=== PATIENT | male | born 1955 | race Caucasian/White ===

== ENCOUNTER → 2019-10-13 | Day surgery (SDC) | payer MEDICARE, OTHER ==
[2019-10-10 10:09] LABS: BASOPHILS # (AUTO) 0.1 (0.0-0.1); BASOPHILS % 0.7 % (0.0-1.0); EOSINOPHILS # (AUTO) 0.2 (0.0-0.4); EOSINOPHILS % 2.4 % (0.0-6.0); HEMOGLOBIN 13.6 g/dL (14.0-18.0); LYMPHOCYTES # (AUTO) 1.6 (1.0-3.2); LYMPHOCYTES % 18.1 % (18.0-39.1); MEAN CORPUSCULAR HEMOGLOBIN 31.7 pg (28-32); MEAN CORPUSCULAR HGB CONC 33.2 g/dL (31-35); MEAN CORPUSCULAR VOLUME 95.6 fL (81-99); MONOCYTES % 11.1 % (4.4-11.3); NEUTROPHILS # (AUTO) 5.9 (2.1-6.9); NEUTROPHILS % 66.7 % (38.7-80.0); PLATELET COUNT 216 x10e3/uL (140-360); RED BLOOD COUNT 4.29 x10e6/uL (4.3-5.7); RED CELL DISTRIBUTION WIDTH 13.1 % (11.7-14.4)
[2019-10-10 10:34] LABS: ALBUMIN 3.4 g/dL (3.5-5.0); ALBUMIN/GLOBULIN RATIO 1.4 (0.8-2.0); CREATININE, SERUM 1.57 mg/dL (0.72-1.25)
[2019-10-13] VITALS (8 sets, daily range): BP systolic 125–144; BP diastolic 65–79
[~2019-10-13] VITALS: Ht 180.3 cm; Wt 65.8 kg
[~2019-10-13] MED LIST: ALPRAZOLAM 0.5 MG TAB ONE; AMIODARONE HCL200 MG PO; AMLODIPINE BESY10 MG PO; ATORVASTATIN CA20 MG PO; CARVEDILOL25 MG PO; CITALOPRAM HBR20 MG PO; DIPHENHYDRAMINE HCL 25 MG CAP ONE; FENTANYL CITRATE/PF 100MCG/2 ML INJ ONE; FLOMAX0.4 MG PO; FLUTICASONE PRO16 GM; HEPARIN SOD (PORCINE) 1000 UNIT/ML 30ML ONE; HEPARIN SOD/SOD CHLORIDE 2,000 ML ONE; IOPAMIDOL 370 MG/ML 200 ML INFUS..BTL INJ ONE; LIDOCAINE HCL 2% LOCAL 20 ML VIAL ONE; LISINOPRIL10 MG PO; MIDAZOLAM HCL 2 MG/2 ML VIAL ONE; PANTOPRAZOLE SO40 MG PO; POTASSIUM CHLO10 ME1 PO; SODIUM CHLORIDE 0.9% 1000ML 1,000 ML ONE; SYMBICORT 16010.2 GM INH; TRAZODONE HCL50 MG PO; VERAPAMIL HCL 2.5 MG/ML 2 ML VIAL ONE
--- OUTSIDE RECORDS SUMMARY | 2019-10-13 12:04 | XMS REPORT | Clinical Summary ---
Author Author [facility] Address Unknown Phone Unavailable Care Team Providers Care Forestry Consultant Name Role Phone System, Provider Not In MD PCP Unavailable Allergies No Known Allergies Medications End Date Status Medication Sig Dispensed Refills Start Date Active acetaminophen-codeine Take 1 tablet 0 (TYLENOL WITH CODEINE #3) by mouth 300-30 mg per tablet every 6 (six) hours as needed for moderate pain. Active acetaminophen (TYLENOL) Take 1,000 mg 0 500 MG tablet by mouth every 6 (six) hours as needed for mild pain. 12/10/2018 Discontinued (Reorder) amLODIPine (NORVASC) 10 Take 10 mg by 0 mg tablet mouth every morning. 12/10/2018 Discontinued (Stop Taking at Discharge) amLODIPine (NORVASC) 2.5 Take 5 mg by 0 mg tablet mouth nightly. 12/10/2018 Discontinued (Reorder) metoprolol tartrate Take 25 mg by 0 (LOPRESSOR) 25 mg tablet mouth 2 (two) times a day. 12/10/2018 Discontinued (Reorder) tamsulosin (FLOMAX) 0.4 Take 0.4 mg 0 mg capsule by mouth daily. 12/10/2018 Discontinued (Reorder) traZODone (DESYREL) 100 Take 100 mg 0 MG tablet by mouth nightly. 12/10/2018 Discontinued (Reorder) lisinopril Take 20 mg by 0 (PRINIVIL,ZESTRIL) 20 mg mouth daily. tablet 12/10/2018 Discontinued (Stop Taking at Discharge) hydroCHLOROthiazide Take 12.5 mg 0 (MICROZIDE) 12.5 mg by mouth capsule daily. 01/09/2019 metoprolol tartrate Take 1 tablet 60 tablet 0 (LOPRESSOR) 25 mg tablet (25 mg total) 9 by mouth 2 (two) times a day for 30 days. 01/09/2019 lisinopril Take 1 tablet 30 tablet 0 (PRINIVIL,ZESTRIL) 20 mg (20 mg total) 9 tablet by mouth daily for 30 days. 01/09/2019 tamsulosin (FLOMAX) 0.4 Take 1 30 capsule 0 mg capsule capsule (0.4 9 mg total) by mouth daily for 30 days. 01/09/2019 traZODone (DESYREL) 100 Take 1 tablet 30 tablet 0 201 MG tablet (100 mg 9 total) by mouth nightly for 30 days. 01/09/2019 amLODIPine (NORVASC) 10 Take 1 tablet 30 tablet 0 mg tablet (10 mg total) 9 by mouth every morning for 30 days. Active Problems Problem Noted Date Chest pain 12/08/2018 Encounters Care Team Description Date Type Specialty Cristhian Fam MD Rizvi, Farhan, MD Chest pain, unspecified type (Primary Dx ) 12/08/2018 Emergency General Internal Me [facility] - 12/10/2018 12/08/2018 Travel after 10/12/2018 Social History Date Tobacco Use Types Packs/Day Years Used Current Every Day Smoker Cigarettes Smokeless Tobacco: Never Used Comments: 1 cigarette a day Drinks/Week oz/Week Comments Alcohol Use Never Alcohol Habits Answer Date Recorded How often do you have a drink containing alcohol? Never 12/08/2018 How many drinks containing alcohol do you have on No t asked a typical day when you are drinking? How often do you have six or more drinks on one Not asked occasion? Sex Assigned at Date Recorded Not on file Industry Job Start Date Occupation Not on file Not on file Not on file Travel End Travel History Travel Start No recent travel history available. Last Filed Vital Signs Reading Time Taken Comments Vital Sign 112/65 12/10/2018 11:14 AM CDT Blood Pressure 67 12/10/2018 11:14 AM CDT Pulse 36.8 C (98.2 F) 12/10/2018 11:14 AM CDT Temperature 16 12/10/2018 11:14 AM CDT Respiratory Rate 95% 12/10/2018 11:14 AM CDT Oxygen Saturation - - Inhaled Oxygen Concentration 68 kg (150 lb) 12/08/2018 10:38 AM CDT Weight 180.3 cm (5' 11") 12/08/2018 10:38 AM CDT Height 20.92 12/08/2018 10:38 AM CDT Body Mass Index Plan of Treatment Health Maintenance Due Date Last Done Comments COLONOSCOPY SCREENING 01/30/2004 SHINGLES VACCINES (#1) 01/30/2004 65+ PNEUMOCOCCAL VACCINE 2019 (1 of 2 - PCV13) INFLUENZA VACCINE 01/06/2020 Procedures Comments Procedure Name Priority Date/Time Associated Diag nosis NM MYOCARDIAL PERFUSION Routine 12/10/2018 REST STRESS 2 DAY 12:37 PM CDT CV STRESS TEST NUCLEAR Routine 12/10/2018 CARDIO 12:37 PM CDT TTE COMPLETE, WO Routine 12/09/2018 CONTRAST, W DOPPLER 10:58 AM CDT (76033) ESTIMATED GFR Routine 12/09/2018 6:32 AM CDT BASIC METABOLIC PANEL Routine 12/09/2018 6:32 AM CDT HC COMPLETE BLD COUNT Routine 12/09/2018 W/AUTO DIFF 6:32 AM CDT TROPONIN Timed 12/08/2018 8:49 PM CDT TROPONIN Timed 12/08/2018 2:03 PM CDT XR CHEST 1 VW PORTABLE STAT 12/08/2018 11:01 AM CDT ECG ED PRELIMINARY Routine 12/08/2018 INTERPRETATION 10:30 AM CDT LIPID PANEL Routine 12/08/2018 10:30 AM CDT HEMOGLOBIN A1C Routine 12/08/2018 10:30 AM CDT ESTIMATED GFR STAT 12/08/2018 10:30 AM CDT B NATRIURETIC PEPTIDE STAT 12/08/2018 10:30 AM CDT TROPONIN STAT 12/08/2018 10:30 AM CDT COMPREHENSIVE METABOLIC STAT 12/08/2018 PANEL 10:30 AM CDT HC COMPLETE BLD COUNT STAT 12/08/2018 W/AUTO DIFF 10:30 AM CDT ECG 12-LEAD STAT 12/08/2018 10:15 AM CDT after 10/12/2018 Results * Cv stress test (12/10/2018 12:37 PM CDT) Resting HR 62 [facility] Resting BP 146 [facility] Peak MET 1.0 [facility] Achieved Protocol Name LEXISCAN [facility] Time in 00:00:55 [facility] Exercise Phase Max Systolic BP 146 [facility] Max Diastolic 80 [facility] BP Max Heart Rate 76 [facility] Max Predicted 156 [facility] Heart Rate Target HR (220 - Age)*100% [facility] Formula Test Indication [facility] Arrhy During Ex none [facility] ECG Interp LAD, LEFT ATRIAL ENLARGEMENT [facility] Before EX ECG Interp none [facility] During Ex Ex Summary Myoview to follow [facility] Comment Chest Pain none [facility] Statement Overall HR appropriate [facility] Response to Exercise Overall BP normal resting BP - [facility] Response To appropriate response Exercise Reason for Protocol completed [facility] Termination Stress Test MYOVIEW TO [facility] Impression FOLLOW--Electronically Sign ed By Juan Francisco Paz MD ([id number]) on 12/29/2018 8:55:50 PM Specimen Narrative Performed At This result has an attachment that is n ot available. Performing Organization Address City/State/Zipcode Ph one Number [facility] [address] [place] [address] * Nm myocardial perfusion (12/10/2018 12:37 PM CDT) Target HR 156.00 bpm [facility] Resting HR 62 BPM [facility] Resting BP 146/80 mmHg [facility] O2 sat rest 96 % [facility] Post Peak HR 76 bpm [facility] Percent HR 48.72 % [facility] Post Peak BP 146/80 mmHg [facility] O2 sat peak 99 % [facility] Specimen Narrative Performed At [facility] Normal hemodynamic lexiscan stress test . Normal ECG lexiscan stress test. Abormal myocardial perfusion imaging de monstrating a large, severe, predominantly fixed inferior and apical defect consistent with prior infarct. Gated imaging demonstrates an EF of 35% with akinesis of the basal to apical inferior wall and apex. Performing Organization Address City/State/Zipcode Ph one Number [facility] [address] [place] [address], [place] * Echocardiogram complete w contrast and 3D if needed (12/09/2018 10:58 AM CDT) Ao Root 4.17 cm [facility] Diameter AoV Area, Vmax 3.75 cm2 [facility] AoV Area, VTI 4.11 cm2 [facility] AoV Mean PG 2.82 mmHg [facility] AoV Peak PG 4.66 mmHg [facility] AoV Vmax 1.10 m/s [facility] AoV VTI 0.19 m [facility] BSA Vázquez 1.84 m2 [facility] BSA 1.87 m2 [facility] IVS,d 0.86 cm [facility] IVS/LVPW,2D 0.83 [facility] Left Atrium 4.04 cm [facility] Dimension Anterior LV,d 5.21 cm [facility] LV EF,2D 55.66 % [facility] LV,s 3.97 cm [facility] LVOT area 4.26 cm2 [facility] LVOT Diam,S 2.33 cm [facility] LVOT Vmax 1.00 m/s [facility] LVOT VTI 0.20 m [facility] LVPWD,d 1.04 cm [facility] PV Pk Grad 3.66 mmHg [facility] PV VMAX 0.96 m/s [facility] RVSP (TR) 35.40 mmHg [facility] TR Vpeak 3.01 mm/s [facility] TR pk grad 32.58 mmHg [facility] AoV area i VTI 2.20 cm2/m2 [facility] BSA Behzad BMI 20.92 kg/m2 [facility] IVRT 111.32 msec [facility] AV LVOT peak 3.64 mmHg [facility] gradient Ascending aorta 3.97 cm [facility] RVSP 35.40 mmHg [facility] Ao Root 4.17 cm [facility] Diameter LV SYS VOL 68.84 ml [facility] LV KHOURY VOL 130.03 ml [facility] LA area s A4C 16.59 cm2 [facility] LV SI Teich 2D 32.79 ml/m2 [facility] LV SV Teich 2D 61.19 ml [facility] LV Vol s Teich 68.84 ml [facility] PSAX LVOT SI 40.55 ml/m2 [facility] BSA Haycock 1.84 m2 [facility] AoV Vmn 0.78 [facility] IVS s 2D 1.56 [facility] LV FS Teich 2D 23.75 [facility] LV FS Cube 2D 23.75 [facility] LVOT Vmn 0.61 [facility] Pt Size 180.34 [facility] Pt Wt 68.04 [facility] Aov area Vmn 3.34 cm2 [facility] LA A_P score P 2.40 [facility] LVOT mean grad 1.83 mmHg [facility] MAX Pred HR 155.14 [facility] 85 of MPHR 131.87 [facility] AoV area I VMN 1.79 cm2/m2 [facility] bsa Calc MPHR 155.14 bpm [facility] IVS pct thck 81.91 % [facility] PLAX LV SI Cube 2D 42.16 ml/m2 [facility] LV SV Cube 2D 78.67 ml [facility] LV vol d cube 141.34 ml [facility] 2D LV vol s cube 62.67 ml [facility] 2D LVPW pct thck 64.94 % [facility] PLAX LVPW s PLAX 1.71 cm [facility] Pred Exer Dur 7.96 [facility] R1 Pred METS R1 8.27 [facility] LA Vol MOD A4C 35.83 ml [facility] Velocity Ratio 0.91 m/s [facility] (V1/V2) EF 47.06 % [facility] Specimen Narrative Performed At [facility] Left ventricular systolic function i s mildly impaired. Left Ventricular ejection fraction i s 40 - 45%. Right ventricular size is mildly enl arged. Moderate tricuspid valve regurgitati on. Spectral Doppler shows pseudonormal pattern of left ventricular diastolic filling. Elevated LV filling pressure. Performing Organization Address City/State/[facility] Ph one Number [facility] [address] [place] [address], * Estimated GFR (12/09/2018 6:32 AM CDT) Only the most recent of 2 results within the time period is included. Estimated GFR 57 (A) mL/min/1.73 m2 [facility] Comment: [facility] G1 >=90 Normal or high G2 60-89 Mildly decreased G3a 45-59 Mildly to moderately decreased G3b 30-44 Moderately to severely decreased G4 15-29 Severely decreased G5 <15 Kidney failure The eGFR was calculated using the Chronic Kidney Disease Epidemiology Collaboration (CKD-EPI) equation. Interpretation is based on recommendations of the National Kidney Foundation-Kidney Disease Outcomes Quality Initiative (NKF-KDOQI) published in 2014. Specimen Plasma specimen Performing Organization Address City/State/Zipcode Ph one Number [facility] [address] [place] [address] PATHOLOGY AND GENOMIC MEDICINE [address] * CBC with platelet and differential (12/09/2018 6:32 AM CDT) Only the most recent of 2 results within the time period is included. Pathologist [facility] WBC 10.0 4.2 - 11.0 k/uL [facility] RBC 4.87 4.04 - 5.86 m/uL [facility] HGB 14.5 13.0 - 17.3 g/dL [facility] HCT 44.8 34.0 - 45.0 % [facility] MCV 92.0 80.0 - 98.0 fL [facility] MCH 29.8 27.0 - 34.0 pg [facility] MCHC 32.4 31.5 - 36.5 g/dL [facility] RDW - SD 43.1 37.0 - 51.0 fL [facility] MPV 10.1 7.4 - 10.4 fL [facility] Platelet count 218 150 - 400 k/uL [facility] Nucleated RBC 0.00 /100 WBC [facility] Neutrophils 75.8 (H) 36.0 - 66.0 % [facility] Lymphocytes 14.3 (L) 24.0 - 44.0 % [facility] Monocytes 8.1 (H) 0.0 - 6.0 % [facility] Eosinophils 0.9 0.0 - 6.0 % [facility] Basophils 0.3 0.0 - 1.2 % [facility] Immature 0.6 0.0 - 1.0 % [facility] granulocytes [facility] Specimen Blood Performing Organization Address City/[facility] Ph one Number [facility] [place] [address] PATHOLOGY AND GENOMIC MEDICINE [address] * Basic metabolic panel (12/09/2018 6:32 AM CDT) [facility] Sodium 142 135 - 150 mEq/L [facility] Potassium 3.9 3.5 - 5.0 mEq/L [facility] Chloride 105 98 - 112 mEq/L [facility] CO2 24 24 - 31 mmol/L [facility] Anion gap 13@ANIO 7 - 15 mEq/L [facility] BUN 16 7 - 18 mg/dL [facility] Creatinine 1.30 (H) 0.70 - 1.20 mg/dL [facility] Glucose 111 (H) 65 - 100 mg/dL [facility] Calcium 9.7 8.8 - 10.2 mg/dL [facility] Specimen Plasma specimen Performing Organization Address [facility] Ph one Number [facility] [place] [address] PATHOLOGY AND GENOMIC MEDICINE [address] * Troponin (12/08/2018 8:49 PM CDT) Only the most recent of 3 results within the time period is included. [facility] Troponin 0.035 0.000 - 0.040 ng/mL [facility] Comment: [facility] changed methodology effective: HOSPITAL 10/11/2018 at 10:00 am The new method has a 99th percentile cutoff of 0.040 ng/mL Specimen Plasma specimen Performing Organization Address City/[facility] Ph one Number [facility] DEPARTMENT OF [address] [place] [address] PATHOLOGY AND GENOMIC MEDICINE [facility] [address] [place], [place] [id number] [place] [address] * XR Chest 1 Vw Portable (12/08/2018 11:01 AM CDT) Specimen Narrative Performed At EXAMINATION: XR CHEST 1 VW PORTABLE [facility] INDICATION: chest pain COMPARISON: 05/17/2015 IMPRESSION: Mildly hyperinflated lungs with coarsen ed bronchovascular markings, suggestive of emphysema. Linear opacities in the l lissette bases, compatible with scarring and hypoventilatory changes. There is a lef t midlung calcified granuloma. No acute airspace disease or pulmonary edema. No pleural effusion or pneumothorax. Unchanged enlarged cardiomediastinal si lhouette. Unchanged osseous structures. [facility]-[id number] Procedure Note Hm Interface, Radiology Results Incoming - 12/08/2018 11:06 AM CDT EXAMINATION: XR CHEST 1 VW PORTABLE INDICATION: chest pain COMPARISON: 05/17/2015 IMPRESSION: Mildly hyperinflated lungs with coarsened bronchovascular markings, suggestive of emphysema. Linear opacities in the lung bases, compatible with scarring and hypoventilatory changes. There is a left midlung calcified granuloma. No acute airspace disease or pulmonary edema. No pleural effusion or pneumothorax. Unchanged enlarged cardiomediastinal silhouette. Unchanged osseous structures. [facility]-[id number] Performing Organization Address [facility] Ph one Number [facility] [address] [place] [address] * ECG ED Preliminary Interpretation - Not an Order (12/08/2018 10:30 AM CDT) Narrative Performed At Cristhian Fam MD 12/09/19 11:11 PM ECG ED Preliminary Interpretation - Not an Order Performed by: Cristhian Fam M D Authorized by: Cristhian Fam MD ECG reviewed by ED Physician in the abs ence of a junior net developer: yes Interpretation: Interpretation: abnormal Rate: ECG rate: 81 ECG rate assessment: normal Rhythm: Rhythm: sinus rhythm Ectopy: Ectopy: none QRS: QRS axis: Normal QRS intervals: Wide Conduction: Conduction: normal ST segments: ST segments: Non-specific T waves: T waves: normal Q waves: Q waves: V3, V4, II, III and aVF Other findings: Other findings: [facility] * B natriuretic peptide (12/08/2018 10:30 AM CDT) Pathologist [facility] BNP 86 0 - 100 pg/mL [facility] Specimen Blood Performing Organization Address City/State/Zipcode Ph one Number [facility] OF [address] [place] [address] PATHOLOGY AND GENOMIC MEDICINE [facility] [address] * Hemoglobin A1c (12/08/2018 10:30 AM CDT) Pathologist [facility] Hemoglobin A1C 5.8 (H) 4.0 - 5.6 % [facility] Comment: [facility] HbA1c cutoffs for diagnosing [place] diabetes: HOSPITAL 4.0% - 5.6% = normal 5.7% - 6.4% = increased risk for diabetes (prediabetes) >=6.5% = diabetes Goals for glycemic control (ADA 2016) < 7.0% Target for non adults with diabetes. More or less stringent targets may be appropriate for individual patients. <7.5% Target for Children and adolescents with type 1 diabetes. Specimen Blood Performing Organization Address City/State/Zipcode Ph one Number [facility] OF [address] [facility] [place] [address] PATHOLOGY AND GENOMIC MEDICINE [facility] [address] [place] [address] * Lipid panel (12/08/2018 10:30 AM CDT) Cholesterol 238 (H) 0 - 199 mg/dL [facility] Triglycerides 148 0 - 149 mg/dL [facility] HDL cholesterol 67 40 - 9,999 mg/dL [facility] LDL cholesterol 191 (H)Comment: Result 0 - 99 mg/dL [facility] obtained by direct LDL [facility] measurement [facility] Lipid panel See below [facility] interpretation Comment: [facility] Total Cholesterol (mg/dL) [place] LDL Cholesterol HOSPITAL (mg/dL) <200 Desirable <100 Optimal 200-239 Borderline-high 100-129 Near or above optimal >=240 High 130-159 Borderline-high 160-189 High >=190 Very high HDL Cholesterol (mg/dL) Triglycerides (mg/dL) <40 Low <150 Normal >=60 High 150-199 Borderline-high 200-499 High >=500 Very high Risk Catergories that modify LDL goals. Risk Catergories LDL goal (mg/dL) CHD and CHD risk equivalent <100 (10-year risk >20%) Multiple (2+) risk factors <130 (10-year risk =<20%) 0-1 risk factors <160 (<10-year risk) Defining levels of lipids in metabolic syndrome Triglycerides >=150 mg/dL HDL Cholesterol Men <40 mg/dL Women <50 mg/dL Non-HDL cholesterol is a second target for therapy in persons with high triglycerides (>=200 mg/dL) Specimen Plasma specimen Performing Organization Address City/State/[facility] Ph one Number [facility] [address] [place] [address] PATHOLOGY AND GENOMIC MEDICINE [facility] [address] * Comprehensive metabolic panel (12/08/2018 10:30 AM CDT) Sodium 144 135 - 150 mEq/L [facility] Potassium 3.2 (L) 3.5 - 5.0 mEq/L [facility] Chloride 102 98 - 112 mEq/L [facility] CO2 26 24 - 31 mmol/L [facility] Anion gap 16@ANIO (H) 7 - 15 mEq/L [facility] BUN 15 7 - 18 mg/dL [facility] Creatinine 1.30 (H) 0.70 - 1.20 mg/dL [facility] Glucose 107 (H) 65 - 100 mg/dL [facility] Calcium 9.9 8.8 - 10.2 mg/dL [facility] Protein 7.3 6.3 - 8.3 g/dL [facility] Albumin 4.2 3.5 - 5.0 g/dL [facility] A/G ratio 1.4 0.7 - 3.8 [facility] Alkaline 121 0 - 129 U/L [facility] phosphatase [facility] AST 32 10 - 50 U/L [facility] ALT 35 5 - 50 U/L [facility] Total bilirubin 0.4 0.2 - 1.2 mg/dL [facility] Specimen Plasma specimen Performing Organization Address City/State/Zipcode Ph one Number [facility] OF [address] [facility] [place] [address] PATHOLOGY AND GENOMIC MEDICINE [facility] [address] [facility] [place] [address] HOSPITAL * ECG 12 lead (12/08/2018 10:15 AM CDT) Ventricular 81 [facility] rate Atrial rate 81 [facility] MN interval 190 [facility] QRSD interval 124 [facility] QT interval 458 [facility] QTC interval 532 [facility] P axis 1 34 [facility] QRS axis 1 -78 [facility] T wave axis 46 [facility] MUSE EKG impression Normal sinus rhythm-Possible [facility] MUSE Left atrial enlargement-Left axis deviation-Left ventricular hypertrophy with QRS widening ( Lc product )-Inferior infarct (cited on or before 14-DEC-2008)-Anterior infarct (cited on or before 14-DEC-2008)-Abnormal ECG-In automated comparison with ECG of 04-JUN-2015 11:46,-Nonspecific T wave abnormality has replaced inverted T waves in Inferior leads- Specimen Narrative Performed At This result has an attachment that is n ot available. Performing Organization Address City/State/[facility] Ph one Number [facility] MUSE [address] [place] [address] after 10/12/2018 Insurance Type Payer Benefit Subscriber ID Effective Phone Address Plan / Dates Group O [facility] MEDICARE [facility] DUAL xxxxxxxxx 2018-P COMPLETE resent [facility] Liability Advance Directives For more information, please contact: [phone] Patient Police Justice Explanation Type Date Recorded Advance Directives, 10/08/2015 11:45 AM Living Will and Medical Power of [employer] Advance Directives, 10/16/2015 12:53 PM Living Will and Medical Power of [employer] Advance Directives, 10/22/2015 10:22 AM Living Will and Medical Power of [employer] Advance Directives, 12/16/2015 8:58 AM Living Will and Medical Power of [employer] Advance Directives, 12/08/2018 10:54 AM Living Will and Medical Power of [employer]
--- OUTSIDE RECORDS SUMMARY | 2019-10-13 12:05 | XMS REPORT ---
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 Allergies, Adverse Reactions, Alerts Allergy Name Allergy Type Status Severity Reaction(s) Onset Date Inacti ve Date Treating Clinician Comments No Known Allergies DA Active U 2019-06-23 00:00:00 No Known Allergies DA Active U 2019-05-08 00:00:00 No Known Allergies DA Active U 2014-12-21 00:00:00 Medications This patient has no known medications. Results Test Description Test Time Test Comments Text Results Atomic Results Result Comments BASIC METABOLIC PANEL 2019-06-23 18:40:00 SODIUM (test code = NA) 143 mmol/L 136-145 POTASSIUM (test code = K) 4.4 mmol/L 3.5-5.1 CHLORIDE (test code = CL) 112.0 mmol/L 98-107 CARBON DIOXIDE (test code = CO2) 24.0 mmol/L 21-32 ANION GAP (test code = GAP) 11.4 10-20 GLUCOSE (test code = GLU) 94 mg/dL 74-106 BLOOD UREA NITROGEN (test code = BUN) 9 mg/dL 7-18 GLOMERULAR FILTRATION RATE (test code = GFR) > 60 mL/min >=6 0 Estimated GFR by using Modified MDRD formula.Chronic kidney disease is defined as either kidney damageor GFR <60 mL/min/1.73 m2 for >3 months. CREATININE (test code = CREAT) 1.00 mg/dL 0.7-1.3 BUN/CREATININE RATIO (test code = BUN/CREA) 9.0 10-2 0 CALCIUM (test code = CA) 9.0 mg/dL 8.5-10.1 HEPATIC FUNCTION [id number] 18:40:00* Test Item Value Reference Range Comments TOTAL PROTEIN (test code = PROT) 6.6 gram/dL 6.4-8.2 ALBUMIN (test code = ALB) 3.6 g/dL 3.4-5.0 GLOBULIN (test code = GLOB) 3.0 gram/dL 2.7-4.2 ALBUMIN/GLOBULIN RATIO (test code = A/G) 1.2 0.75-1. 50 BILIRUBIN TOTAL (test code = BILT) 0.40 mg/dL 0.0-1.0 BILIRUBIN DIRECT (test code = BILD) 0.14 mg/dL 0.0-0.20 SGOT/AST (test code = AST) 22 IUnit/L 15-37 SGPT/ALT (test code = ALT) 37 IUnit/L 12-78 ALKALINE PHOSPHATASE TOTAL (test code = ALKP) 113 IUnit/L 45 -117 Note change in reference range due to change in reagent. CREATINE KINASE (CK)2019-06-23 18:40:00* Test Item Value Reference Range Comments CREATINE KINASE (CK) (test code = CK) 59 IUnit/L 26-208 [id number] 18:40:00* Test Item Value Reference Range Comments LIPASE (test code = LIP) 274 U/L 73.0-393.0 [id number] 18:40:00* Test Item Value Reference Range Comments MAGNESIUM (test code = MAG) 1.9 mg/dL 1.8-2.4 TSH REFLEX TO [id number] 18:40:00* Test Item Value Reference Range Comments TSH REFLEX TO FT4 (test code = TSHREFLEX) 1.9 0.4-5. 5 [id number] 18:40:00* Test Item Value Reference Range Comments TROPONIN-I (test code = TROPI) <0.015 ng/mL 0-0.045 BASIC METABOLIC [id number] 18:25:00* Test Item Value Reference Range Comments SODIUM (test code = NA) 143 mmol/L 136-145 POTASSIUM (test code = K) 4.4 mmol/L 3.5-5.1 CHLORIDE (test code = CL) 112.0 mmol/L 98-107 CARBON DIOXIDE (test code = CO2) mmol/L 21-32 ANION GAP (test code = GAP) 10-20 GLUCOSE (test code = GLU) mg/dL 74-106 BLOOD UREA NITROGEN (test code = BUN) mg/dL 7-18 GLOMERULAR FILTRATION RATE (test code = GFR) mL/min >=6 0 CREATININE (test code = CREAT) mg/dL 0.7-1.3 BUN/CREATININE RATIO (test code = BUN/CREA) 10-2 0 CALCIUM (test code = CA) mg/dL 8.5-10.1 HEPATIC FUNCTION [id number] 18:25:00* Test Item Value Reference Range Comments TOTAL PROTEIN (test code = PROT) gram/dL 6.4-8.2 ALBUMIN (test code = ALB) g/dL 3.4-5.0 GLOBULIN (test code = GLOB) gram/dL 2.7-4.2 ALBUMIN/GLOBULIN RATIO (test code = A/G) 0.75-1. 50 BILIRUBIN TOTAL (test code = BILT) mg/dL 0.0-1.0 BILIRUBIN DIRECT (test code = BILD) mg/dL 0.0-0.20 SGOT/AST (test code = AST) IUnit/L 15-37 SGPT/ALT (test code = ALT) IUnit/L 12-78 ALKALINE PHOSPHATASE TOTAL (test code = ALKP) IUnit/L 45 -117 CREATINE KINASE (CK)2019-06-23 18:25:00* Test Item Value Reference Range Comments CREATINE KINASE (CK) (test code = CK) IUnit/L 26-208 [id number] 18:25:00* Test Item Value Reference Range Comments LIPASE (test code = LIP) U/L 73.0-393.0 [id number] 18:25:00* Test Item Value Reference Range Comments MAGNESIUM (test code = MAG) mg/dL 1.8-2.4 TSH REFLEX TO [id number] 18:25:00* Test Item Value Reference Range Comments TSH REFLEX TO FT4 (test code = TSHREFLEX) 0.4-5. 5 [id number] 18:25:00* Test Item Value Reference Range Comments TROPONIN-I (test code = TROPI) ng/mL 0-0.045 - XR L-SPINE 2/3 [id number] 16:09:00 FAX: Phil Baer MD [place]: St: REG Name: SKY ADHIKARI [facility] : [birth year] Age/S: 64/M [address] [facility] Unit #: [id number] Loc: [place] [address] Phys: Phil Baer MD Acct: [id number] Dis Date: Status: REG ER PHONE #: [phone] Exam Date: 06/23/2019 1514 FAX #: [phone] Reason: pain EXAMS: CPT CODE: [id number] XR L-SPINE 2/3 VIEWS 20410 EXAM: Lumbar spine, 3 views and SI joints, 2 views; INFORMATION: Generalized weakness, lower back pa in; FINDINGS: There is mild rotational scoliosis of the numb er spine with convexity to the right. Otherwise, good alignment. There is almost complete obliteration of the disc space L5/S1 and there is also significant narrowing of the disc space L4/5. This is associated with subchondral sclerosis of endplates and prominent anterior lateral ost eophytes. More cranial discs of normal height. Small Schmorl's nodes are seen along the opposing endplates of L2 and 3. Paravertebral so ft tissues are unremarkable. SI joints are unremarkable. Extensive c alcifications of the abdominal aorta and iliac arteries. IMPRESS ION: 1. No evidence of acute osseous trauma. 2. Mild scoliosis. 3. Advanced degenerative disc disease and spondylosis of the lower lumbar spine. 4. No abnormalities of the SI joints. Location code: [facility] at 1609 Reported and signed by: Brady Koch M.D. CC: Phil Baer MD Technologist: MEL JACQUES Trnyaryrd Date/Time/By: 06/23/2019 (1108) : By: BrendaGRW Orig Print D/T: S: 06/23/2019 (1881) PAGE 1 Signed Report - XR SI JOINTS < 3 [id number] 16:09:00 FAX: Phil Baer MD [place]: St: REG Name: SKY ADHIKAR[facility] : [birth year] Age/S: 64/M [address] [facility] Unit #: [id number] Loc: [place] [address] Phys: Phil Baer MD Acct: [id number] Dis Date: Status: REG ER PHONE #: [phone] Exam Date: 06/23/2019 1519 FAX #: [phone] Reason: pain EXAMS: CPT CODE: [id number] XR SI JOINTS < 3 V 99458 EXAM: Lumbar spine, 3 views and SI joints, 2 views; INFORMATION: Generalized weakness, lower back pain; FINDINGS: There is mild rotational scoliosis of the number spine with convexity to the right. Otherwise, good alignment. There is almost complete obliteration of the disc space L5/S1 and there is also significant narrowing of the disc space L4/5. This is ass ociated with subchondral sclerosis of endplates and prominent anterior lat eral osteophytes. More cranial discs of normal height. Small Schmorl 's nodes are seen along the opposing endplates of L2 and 3. Paravert ebral soft tissues are unremarkable. SI joints are unremarkable. Ext ensive calcifications of the abdominal aorta and iliac arteries. IMPRESSION: 1. No evidence of acute osseous trauma. 2. Mild sco liosis. 3. Advanced degenerative disc disease and spondylosis of the low er lumbar spine. 4. No abnormalities of the SI joints. Location code: [facility] at 1609 Reported and signed by: Brady Koch M.D. CC: Phil Baer MD Technologist: MEL HESS Trnscrd Date/Time/By: 06/23/2019 (8467) : By: BrendaGRW Orig Print D/T: S: 06/23/2019 (6130) PAGE 1 Signed Report PROTHROMBIN [id number] 15:44:00* Test Item Value Reference Range Comments PROTHROMBIN TIME PATIENT (test code = PTP) 9.9 seconds 9.0-1 4.0 INTERNATIONAL NORMAL RATIO (test code = INR) 0.8 0.8 -1.2 The therapeutic range for oral anticoagulant therapy formost indications is an international normalized ratio (INR)of between 2.0 and 3.0. The recommended therapeutic INRrange for various clinical situations is listed below: Clinical Situation INR range Pulmonary e mbolism treatment (2.0-3.0)Venous thrombosis treatmentVenous thrombosis prophylaxis (high risk surgery)Prevention of systemic embolism from: Acute myocardial infarction Valvular heart disease Atrial fibrillation Mechanical prosthetic heart valves (2.5-3.5) IS PATIENT ON ANTICOAGULANTS? NTHROMBOPLASTIN TIME [id number] 15:44:00* Test Item Value Reference Range Comments THROMBOPLASTIN TIME PARTIAL (test code = PTT) 35.6 seconds 25 .0-36.5 IS PATIENT ON ANTICOAGULANTS? NCBC W/O [id number] 15:26:00* Test Item Value Reference Range Comments WHITE BLOOD CELL (test code = WBC) 7.1 K/mm3 4.5-12.5 RED BLOOD CELL (test code = RBC) 5.20 mill/mm3 4.0-5.8 HEMOGLOBIN (test code = HGB) 14.7 gram/dL 13.0-17.5 HEMATOCRIT (test code = HCT) 48.4 % 42.0-52.0 MEAN CELL VOLUME (test code = MCV) 93.1 fL 80-98 MEAN CELL HGB (test code = MCH) 28.3 picogram 27.0-33.0 MEAN CELL HGB CONCETRATION (test code = MCHC) 30.4 gram/dL 33 .0-36.0 RED CELL DISTRIBUTION WIDTH (test code = RDW) 17.8 % 11 .6-16.2 PLATELET COUNT (test code = PLT) 188 K/mm3 150-450 MEAN PLATELET VOLUME (test code = MPV) 9.4 fL 6.7-11.0 - XR CHEST 1 [id number] 14:22:00 FAX: Phil Baer MD [place]: B St: REG Name: SKY ADHIKARI [facility] : [birth year] Age/S: 64/M [address] [facility] Unit #: [id number] Loc: [place] [address] Phys: Phil Baer MD Acct: [id number] Dis Date: Status: REG ER PHONE #: [phone] Exam Date: 06/23/2019 3659 FAX #: [phone] Reason: ABDOMINAL PAIN EXAMS: CPT CODE: [id number] XR CHEST 1 V 89379 HISTORY: Abdominal pain. Location: [facility]. COMPARISON: May 08, 2019. Bu llous changes in the upper lobes. Basal dependent changes and scarring. No acute infiltrates, effusion or congestion. Cardiomegaly. IMPRES MARIA ELENA: No acute infiltrates, effusion or congestion. Dependent changes. at 1422 Reported and signed by: Bharathi Oleary M.D. CC: Phil Baer MD Technologist: Edelmira Means(R) Trnscrd Scott e/Time/By: 06/23/2019 (8544) : By: [email or web address] Orig Print D/T: S: 2019 (7845) PAGE 1 Signed Report - XR CHEST 1 [id number] 12:53:00 FAX: Simeon Johnson [place]: St: REG Name: SKY ADHIKARI [facility] : [birth year] Age/S: 64/M [address] [facility] Unit #: [id number] Loc: [place] [address] Phys: Simeon Johnson MD Acct: [id number] Dis Date: Status: REG ER PHONE #: [phone] Exam Date: 05/08/2019 1218 FAX #: [phone] Reason: Shortness of Breath EXAMS: CPT CODE: [id number] XR CHEST 1 V 46492 REASON FOR EXAM: Shortness of Breath Exam Order Date: 05/08/2019 11:54 AM Ordering Erin: Simeon Johnson MD PROCEDURE: - XR CHEST 1 V COMPARISON: CT chest September 05, 2018 FINDINGS: There is subsegmental atelectasis versus parenchymal scarring in the left lung base which was also seen on the prior CT scan. The remainder of the lungs are clear. There is no pleural effusion or pneumothorax. Pulmonary vascula rity is within normal limits. Cardiomediastinal silhouette is prom inent but stable in size. The mediastinal contours are within normal limit s. There are mild degenerative changes in the spine. The visualized upper abdomen is within normal limits. I MPRESSION: No acute cardiopulmonary process. Location: [facility] at 1253 Reported and signed by: Artie Laird MD CC: Simeon Granado MD Technologist: BASILIO BELL JR Trnscrd Date/Time/By: 05/08/2019 (7969) : By: [email or web address] Orig Print D/T: S: 05/08/2019 (5398) PAGE 1 Signed Report BASIC METABOLIC [id number] 08:55:00* Test Item Value Reference Range Comments SODIUM (test code = NA) 145 mEq/L 134-147 POTASSIUM (test code = K) 3.2 mEq/L 3.4-5.0 CHLORIDE (test code = CL) 116 mEq/L 100-108 CARBON DIOXIDE (test code = CO2) 20 mEq/L 21-33 ANION GAP (test code = GAP) 12 0-20 GLUCOSE (test code = GLU) 117 mg/dL 70-110 BLOOD UREA NITROGEN (test code = BUN) 21 mg/dL 7-18 GLOMERULAR FILTRATION RATE (test code = GFR) 61.0 80- 90 Units of measure = ml/min/1.73 m2 CREATININE (test code = CREAT) 1.2 mg/dL 0.6-1.3 CALCIUM (test code = CA) 8.1 mg/dL 8.0-10.5 CBC W/AUTO [id number] 07:47:00* Test Item Value Reference Range Comments WHITE BLOOD CELL (test code = WBC) 10.35 x10 3/uL 4.5-11.0 RED BLOOD CELL (test code = RBC) 4.47 x10 6/uL 4.00-5.60 HEMOGLOBIN (test code = HGB) 13.6 g/dL 12.5-16.9 HEMATOCRIT (test code = HCT) 41.6 % 37.5-50.7 MEAN CELL VOLUME (test code = MCV) 93.1 fL 81.0-99.0 MEAN CELL HGB (test code = MCH) 30.4 pg 27.0-33.0 MEAN CELL HGB CONCETRATION (test code = MCHC) 32.7 g/dL 33 .0-37.0 RED CELL DISTRIBUTION WIDTH CV (test code = RDW) 12.4 % 11.5-14.5 RED CELL DISTRIBUTION WIDTH SD (test code = RDW-SD) 42.7 fL 37.0-54.0 PLATELET COUNT (test code = PLT) 200 x10 3/uL 150-400 MEAN PLATELET VOLUME (test code = MPV) 9.7 fL 7.0-9.0 NEUTROPHIL % (test code = NT%) 81.1 % 56.0-77.0 IMMATURE GRANULOCYTE % (test code = IG%) 1.4 % 0.0-2.0 LYMPHOCYTE % (test code = LY%) 9.1 % 14.0-32.0 MONOCYTE % (test code = MO%) 8.3 % 4.8-9.0 EOSINOPHIL % (test code = EO%) 0.0 % 0.3-3.7 BASOPHIL % (test code = BA%) 0.1 % 0.0-2.0 NUCLEATED RBC % (test code = NRBC%) 0.0 % 0-0 NEUTROPHIL # (test code = NT#) 8.39 x10 3/uL 2.0-7.6 IMMATURE GRANULOCYTE # (test code = IG#) 0.15 x10 3/uL 0.00-0. 03 LYMPHOCYTE # (test code = LY#) 0.94 x10 3/uL 1.0-3.8 MONOCYTE # (test code = MO#) 0.86 x10 3/uL 0.1-0.8 EOSINOPHIL # (test code = EO#) 0.00 x10 3/uL 0.0-0.2 BASOPHIL # (test code = BA#) 0.01 x10 3/uL 0.0-0.2 NUCLEATED RBC # (test code = NRBC#) 0.00 x10 3/uL 0.0-0.1 MANUAL DIFF REQUIRED (test code = MDIFF) NO - CT ANGIO [id number] 16:55:00 Name: SKY AYERS [facility] : 1955 Age/S: 63 / M [address] [place] [address] Unit #: [id number] Loc: [place] [address] Phys: Frida Tapia MD Acct: [id number] Dis Date: Status: ADM IN PHONE #: [phone] Exam Date: 09/05/2018 1609 FAX #: [phone] Reason: RODRIGUEZ EXAMS: CPT CODE: [id number] CT ANGIO CHEST 50003 Clinical Indication: RODRIGUEZ; Comparison: None TECHNIQUE: Multi-detector CTA imaging of the chest is performed. Coronal and sagittal as well as 3D Maximum Intensity Projected MIP reconstructions were obtained. 100 cc IV Isovue contrast used. CT DLP 249mg-cm. FINDINGS: CT: Moderate centrilobular emphysema is seen in both lungs. There are no lung nodules, interstitial lung disease, pleural effusions or pneumothorax. Atelectasis is seen at the lung bases and lingula. The central airway is normal. There is no mediastinal lymphadenopathy. Thoracic osseous structures and limited upper abdominal images are unremarkable. CTA: The heart is within normal limits for size without pericardial effusion. Moderate coronary calcification is present. Pulmonary arteries are unremarkable without evidence for proximal segmental or larger pulmonary embolus. The thoracic aorta is within normal limits without aneurysm or dissection. The great vessels and superior vena cava are normal. Mild atherosclerotic calcification affects the thoracic aorta. IMPRESSION: 1. No evidence for pulmonary embolus 2. Moderate bilateral centrilobular emphysema, more on the upper lungs, consistent with COPD lungs. SL: [id number] PAGE 1 Signed Report (CONTINUED) Name: SKY AYERS [facility] : 1955 Age/S: 63 / M [address] [place] [address] Unit #: [id number] Loc: [place] [address] Phys: Frida Tapia MD Acct: [id number] Dis Date: Status: ADM IN PHONE #: [phone] Exam Date: 09/05/2018 1609 FAX #: [phone] Reason: RODRIGUEZ EXAMS: CPT CODE: [id number] CT ANGIO CHEST 57824 < Continued> at 1655 Reported and signed by: Frandy Waters M.D. CC: Saul Dozier DO; Lazaro Tapia; Kerwin Miranda Jr, MD Technologist:Dustin Pappas, RT(R)(CT) CTDI: DLP: Trnscb Date/Time: 09/05/2018 (1655) [email or web address] Orig Print D/T: S: 09/05/2018 (7792) CTDI: DLP: PAGE 2 Signed Report BASIC METABOLIC PANEL 2018-09-05 07:10:00* Test Item Value Reference Range Comments SODIUM (test code = NA) 145 mEq/L 134-147 POTASSIUM (test code = K) 3.3 mEq/L 3.4-5.0 CHLORIDE (test code = CL) 117 mEq/L 100-108 CARBON DIOXIDE (test code = CO2) 21 mEq/L 21-33 ANION GAP (test code = GAP) 10 0-20 GLUCOSE (test code = GLU) 122 mg/dL 70-110 BLOOD UREA NITROGEN (test code = BUN) 18 mg/dL 7-18 GLOMERULAR FILTRATION RATE (test code = GFR) 67.4 80- 90 Units of measure = ml/min/1.73 m2 CREATININE (test code = CREAT) 1.1 mg/dL 0.6-1.3 CALCIUM (test code = CA) 8.5 mg/dL 8.0-10.5 CBC W/AUTO [id number] 04:51:00* Test Item Value Reference Range Comments WHITE BLOOD CELL (test code = WBC) 10.41 x10 3/uL 4.5-11.0 RED BLOOD CELL (test code = RBC) 4.46 x10 6/uL 4.00-5.60 HEMOGLOBIN (test code = HGB) 13.7 g/dL 12.5-16.9 HEMATOCRIT (test code = HCT) 41.3 % 37.5-50.7 MEAN CELL VOLUME (test code = MCV) 92.6 fL 81.0-99.0 MEAN CELL HGB (test code = MCH) 30.7 pg 27.0-33.0 MEAN CELL HGB CONCETRATION (test code = MCHC) 33.2 g/dL 33 .0-37.0 RED CELL DISTRIBUTION WIDTH CV (test code = RDW) 12.5 % 11.5-14.5 RED CELL DISTRIBUTION WIDTH SD (test code = RDW-SD) 43.1 fL 37.0-54.0 PLATELET COUNT (test code = PLT) 193 x10 3/uL 150-400 MEAN PLATELET VOLUME (test code = MPV) 9.7 fL 7.0-9.0 NEUTROPHIL % (test code = NT%) 82.5 % 56.0-77.0 IMMATURE GRANULOCYTE % (test code = IG%) 1.2 % 0.0-2.0 LYMPHOCYTE % (test code = LY%) 10.0 % 14.0-32.0 MONOCYTE % (test code = MO%) 6.2 % 4.8-9.0 EOSINOPHIL % (test code = EO%) 0.0 % 0.3-3.7 BASOPHIL % (test code = BA%) 0.1 % 0.0-2.0 NUCLEATED RBC % (test code = NRBC%) 0.0 % 0-0 NEUTROPHIL # (test code = NT#) 8.58 x10 3/uL 2.0-7.6 IMMATURE GRANULOCYTE # (test code = IG#) 0.13 x10 3/uL 0.00-0. 03 LYMPHOCYTE # (test code = LY#) 1.04 x10 3/uL 1.0-3.8 MONOCYTE # (test code = MO#) 0.65 x10 3/uL 0.1-0.8 EOSINOPHIL # (test code = EO#) 0.00 x10 3/uL 0.0-0.2 BASOPHIL # (test code = BA#) 0.01 x10 3/uL 0.0-0.2 NUCLEATED RBC # (test code = NRBC#) 0.00 x10 3/uL 0.0-0.1 MANUAL DIFF REQUIRED (test code = MDIFF) NO BASIC METABOLIC [id number] 05:06:00* Test Item Value Reference Range Comments SODIUM (test code = NA) 144 mEq/L 134-147 POTASSIUM (test code = K) 3.4 mEq/L 3.4-5.0 CHLORIDE (test code = CL) 117 mEq/L 100-108 CARBON DIOXIDE (test code = CO2) 21 mEq/L 21-33 ANION GAP (test code = GAP) 9 0-20 GLUCOSE (test code = GLU) 154 mg/dL 70-110 BLOOD UREA NITROGEN (test code = BUN) 17 mg/dL 7-18 GLOMERULAR FILTRATION RATE (test code = GFR) 61.0 80- 90 Units of measure = ml/min/1.73 m2 CREATININE (test code = CREAT) 1.2 mg/dL 0.6-1.3 CALCIUM (test code = CA) 8.4 mg/dL 8.0-10.5 CBC W/AUTO [id number] 04:58:00* Test Item Value Reference Range Comments WHITE BLOOD CELL (test code = WBC) 6.77 x10 3/uL 4.5-11.0 RED BLOOD CELL (test code = RBC) 4.14 x10 6/uL 4.00-5.60 HEMOGLOBIN (test code = HGB) 12.9 g/dL 12.5-16.9 HEMATOCRIT (test code = HCT) 38.5 % 37.5-50.7 MEAN CELL VOLUME (test code = MCV) 93.0 fL 81.0-99.0 MEAN CELL HGB (test code = MCH) 31.2 pg 27.0-33.0 MEAN CELL HGB CONCETRATION (test code = MCHC) 33.5 g/dL 33 .0-37.0 RED CELL DISTRIBUTION WIDTH CV (test code = RDW) 12.8 % 11.5-14.5 RED CELL DISTRIBUTION WIDTH SD (test code = RDW-SD) 43.7 fL 37.0-54.0 PLATELET COUNT (test code = PLT) 174 x10 3/uL 150-400 MEAN PLATELET VOLUME (test code = MPV) 10.0 fL 7.0-9.0 NEUTROPHIL % (test code = NT%) 87.5 % 56.0-77.0 IMMATURE GRANULOCYTE % (test code = IG%) 1.2 % 0.0-2.0 LYMPHOCYTE % (test code = LY%) 9.3 % 14.0-32.0 MONOCYTE % (test code = MO%) 1.9 % 4.8-9.0 EOSINOPHIL % (test code = EO%) 0.0 % 0.3-3.7 BASOPHIL % (test code = BA%) 0.1 % 0.0-2.0 NUCLEATED RBC % (test code = NRBC%) 0.0 % 0-0 NEUTROPHIL # (test code = NT#) 5.92 x10 3/uL 2.0-7.6 IMMATURE GRANULOCYTE # (test code = IG#) 0.08 x10 3/uL 0.00-0. 03 LYMPHOCYTE # (test code = LY#) 0.63 x10 3/uL 1.0-3.8 MONOCYTE # (test code = MO#) 0.13 x10 3/uL 0.1-0.8 EOSINOPHIL # (test code = EO#) 0.00 x10 3/uL 0.0-0.2 BASOPHIL # (test code = BA#) 0.01 x10 3/uL 0.0-0.2 NUCLEATED RBC # (test code = NRBC#) 0.00 x10 3/uL 0.0-0.1 MANUAL DIFF REQUIRED (test code = MDIFF) NO [id number] 17:56:00* Test Item Value Reference Range Comments D-DIMER (test code = DDIMER) 1245 ng/mlFEU <=500 TH ROMBOSIS AND/OR PULMONARY EMBOLISM AND THE CLINICAL CUT- OFF VALUE FOR EXCLUSION (500 ng/mL FEU) OF THESE CONDITIONSIS VALIDATED BY THE FACTORY PROCESS WORKERS OF THE METHOD. A NEGATIVE D-DIMER RESULT WHEN COMBINED WITH A CLINICALASSESSMENT OF LOW PRETEST PROBABILITY HAS BEEN SHOWN TO HAVEA HIGH NEGATIVE PREDICTIVE VALUE OF DVT OR PE. D-DIMER VALUES >500 ng/mL FEU ARE NOT DIAGNOSTIC FOR DVT, PEor DIC WITHOUT OTHER CONFIRMATORY TESTS AND APPROPRIATECLINICAL EUALUATIONS. B-TYPE NATRIURETIC [id number] 04:19:00* Test Item Value Reference Range Comments B-TYPE NATRIURETIC PEPTIDE (test code = BNP) 272.9 PG/ML 0-1 00 UR SODIUM [id number] 03:52:00* Test Item Value Reference Range Comments UR SODIUM RANDOM (test code = LINDA) 67 MEQ/L The Reference Range and Method Performance specificationshave not been established for this fluid. The test resultshould be correlated into the clinical context forinterpretation. UR PROTEIN [id number] 03:52:00* Test Item Value Reference Range Comments UR PROTEIN RANDOM (test code = PROTU) 26 mg/dL Note: Change in UNITS of MEASUREMENT. The Reference Range and Method Performance specificationshave not been established for this fluid. The test resultshould be correlated into the clinical context forinterpretation. UR CREATININE [id number] 03:52:00* Test Item Value Reference Range Comments UR CREATININE RANDOM (test code = CREATU) 107.0 mg/dL The Reference Range and Method Performance specificationshave not been established for this fluid. The test resultshould be correlated into the clinical context forinterpretation. BASIC METABOLIC [id number] 03:51:00* Test Item Value Reference Range Comments SODIUM (test code = NA) 145 mEq/L 134-147 POTASSIUM (test code = K) 3.4 mEq/L 3.4-5.0 CHLORIDE (test code = CL) 118 mEq/L 100-108 CARBON DIOXIDE (test code = CO2) 19 mEq/L 21-33 ANION GAP (test code = GAP) 11 0-20 GLUCOSE (test code = GLU) 95 mg/dL 70-110 BLOOD UREA NITROGEN (test code = BUN) 33 mg/dL 7-18 GLOMERULAR FILTRATION RATE (test code = GFR) 43.7 80- 90 Units of measure = ml/min/1.73 m2 CREATININE (test code = CREAT) 1.6 mg/dL 0.6-1.3 CALCIUM (test code = CA) 7.7 mg/dL 8.0-10.5 [id number] 03:51:00* Test Item Value Reference Range Comments MAGNESIUM (test code = MAG) 2.90 mg/dL 1.8-2.4 CBC W/AUTO [id number] 03:38:00* Test Item Value Reference Range Comments WHITE BLOOD CELL (test code = WBC) 13.78 x10 3/uL 4.5-11.0 RED BLOOD CELL (test code = RBC) 3.99 x10 6/uL 4.00-5.60 HEMOGLOBIN (test code = HGB) 12.3 g/dL 12.5-16.9 HEMATOCRIT (test code = HCT) 38.6 % 37.5-50.7 MEAN CELL VOLUME (test code = MCV) 96.7 fL 81.0-99.0 MEAN CELL HGB (test code = MCH) 30.8 pg 27.0-33.0 MEAN CELL HGB CONCETRATION (test code = MCHC) 31.9 g/dL 33 .0-37.0 RED CELL DISTRIBUTION WIDTH CV (test code = RDW) 13.2 % 11.5-14.5 RED CELL DISTRIBUTION WIDTH SD (test code = RDW-SD) 46.9 fL 37.0-54.0 PLATELET COUNT (test code = PLT) 187 x10 3/uL 150-400 MEAN PLATELET VOLUME (test code = MPV) 9.5 fL 7.0-9.0 NEUTROPHIL % (test code = NT%) 78.4 % 56.0-77.0 IMMATURE GRANULOCYTE % (test code = IG%) 0.7 % 0.0-2.0 LYMPHOCYTE % (test code = LY%) 13.7 % 14.0-32.0 MONOCYTE % (test code = MO%) 7.0 % 4.8-9.0 EOSINOPHIL % (test code = EO%) 0.0 % 0.3-3.7 BASOPHIL % (test code = BA%) 0.2 % 0.0-2.0 NUCLEATED RBC % (test code = NRBC%) 0.0 % 0-0 NEUTROPHIL # (test code = NT#) 10.81 x10 3/uL 2.0-7.6 IMMATURE GRANULOCYTE # (test code = IG#) 0.09 x10 3/uL 0.00-0. 03 LYMPHOCYTE # (test code = LY#) 1.89 x10 3/uL 1.0-3.8 MONOCYTE # (test code = MO#) 0.96 x10 3/uL 0.1-0.8 EOSINOPHIL # (test code = EO#) 0.00 x10 3/uL 0.0-0.2 BASOPHIL # (test code = BA#) 0.03 x10 3/uL 0.0-0.2 NUCLEATED RBC # (test code = NRBC#) 0.00 x10 3/uL 0.0-0.1 MANUAL DIFF REQUIRED (test code = MDIFF) NO URINALYSIS [id number] 18:18:00* Test Item Value Reference Range Comments UA COLOR (test code = COLU) YELLOW YEL/STRAW UA APPEARANCE (test code = APPU) CLEAR CLEAR UA GLUCOSE DIPSTICK (test code = DGLUU) NEGATIVE NEGATIVE UA BILIRUBIN DIPSTICK (test code = BILU) NEGATIVE NEGATIV E UA KETONE DIPSTICK (test code = KETU) NEGATIVE NEGATIVE UA SPECIFIC GRAVITY (test code = SGU) 1.023 1.005-1.03 0 UA BLOOD DIPSTICK (test code = DANTE) NEGATIVE NEGATIVE UA PH DIPSTICK (test code = NEVAEH) 5.0 5.0-7.0 UA PROTEIN DIPSTICK (test code = PROU) NEGATIVE NEGATIVE UA UROBILINIOGEN DIPSTICK (test code = URO) 0.2 mg/dL 0.2- 1.0 UA NITRITE DIPSTICK (test code = SADIA) NEGATIVE NEGATIVE UA LEUKOCYTE ESTERASE DIPSTICK (test code = LEUU) NEGATIVE NEGATIVE UA WBC (test code = WBCU) 0-3 WBC/HPF 0-3 UA RBC (test code = RBCU) 4-10 RBC/HPF 0-3 UA BACTERIA (test code = BACU) NONE SEEN /HPF NONE SEEN UA SQUAMOUS CELLS (test code = SQU) 0-5 /HPF NONE SEEN - DUP VEIN [id number] 15:28:00 Name: SKY AYERS [facility] : 1955 Age/S: 63 / M [address] [place] [address] Blvd Unit #: [id number] Loc: TOSHIA Nolasco [address] Phys: Rose Lemus Acct: [id number] Dis Date: Status: ADM IN PHONE #: [phone] Exam Date: 09/02/2018 1526 FAX #: [phone] Reason: PE PROTOCOL EXAMS: CPT CODE: [id number] DUP VEIN MAURA 64179 BILATERAL LOWER EXTREMITY VENOUS DUPLEX ULTRASOUND INDICATION: PE protocol. Elevated d-dimer. Dyspnea on exertion. TECHNIQUE: Venous duplex gómez scale, color Doppler and spectral Doppler ultrasound of the bilateral lower extremities was performed. COMPARISONS: None similar FINDINGS: Right: The common femoral, superficial femoral, popliteal, and posterior tibial veins are completely compressible, reveal spontaneous and phasic flow and augmentation. Of incidental note, there are 2 right femoral veins. The greater saphenous vein reveals no thrombus. Left: The common femoral, superficial femoral, popliteal, and posterior tibial veins are completely compressible, reveal spontaneous and phasic flow and augmentation. The greater saphenous vein reveals no thrombus. IMPRESSION: 1. There is no DVT within either lower extremity. at 1528 Reported and signed by: Yogesh Chavez D.O. CC: Saul Dozier DO; Kerwin Miranda Jr, MD; Rose BOSCH Technologist: Nadine Sinclair RDMS(AB) Trnscb Date/Time: 09/02/2018 (1528) [email or web address] Orig Print D/T: S: 09/02/2018 (8005) Probe: PAGE 1 Signed Report - PULM VENT PERF [id number] 14:56:00 FAX: Saul Pierce DO [phone] [place]: St: ADM FAX: Conor Miranda JrKerwin [phone] FAX: Rose Ferguson [phone] Name: SKY AYERS [facility] : 1955 Age/S: 63/M [address] [place] [address] Unit #: [id number] Loc: G.5526 [place] [address] Phys: Rose Lemus Acct: [id number] Dis Date: Status: ADM IN PH ONE #: [phone] Exam Date: 09/02/2018 1440 FAX #: [phone] Reason: POssible PE EXAMS: CPT CODE: [id number] PU LM VENT PERF IMAG 22424 PROCEDURE: [facility] MEDICINE VENTILATION/PERFUSION SCAN INDICATION: Dyspnea on ex ertion. Shortness of breath for one week. Intermittent chest pain for 2 weeks. Elevated d-dimer. COMPARISON: CXR 09/01/2018 TECHNIQUE: 10 mCi xenon-133 gas inhaled for ventilation study. 5 mC i Tc 99m MAA administered intravenously left antecubital for perfusion sarai dy. FINDINGS: VENTILATION: Diminished ventilation left base with focal air trapping. Ventilation is otherwise homogeneous. PERFUSION: Diminished perfusion left base corresponding to ventilatory abnormality and/or enlarged cardiac silhouette. There is a single mode rate sized subsegmental mismatched defect in the right upper lobe. IMPRESSION: 1. Intermediate probability scan for pulmonary embolic disease. If indicated, further imaging options would include C TA chest. SL: [id number] Bella ctronically Signed by Erin Gonzalez on 2018 at 1456 Reported and signed by: Topher Gonzalez M.D. CC: Saul Dozier DO; Kerwin Miranda Jr, MD; Rose BOSCH Technologist: DESMOND Pittman (N)(CT); ... Trnscrd Date/Time/By: 09/02/2018 (0368) : By: [email or web address] Orig Print D/T: S: (5132) PAGE 1 Signed Rep ort B-TYPE NATRIURETIC [id number] 13:14:00 * Test Item Value Reference Range Comments B-TYPE NATRIURETIC PEPTIDE (test code = BNP) 350.6 PG/ML 0-1 00 HGBA1C%2018-09-02 12:37:00* Test Item Value Reference Range Comments HGBA1C% (test code = HGBA1C%) 5.6 %A1C 4.8-6.0 [id number] 12:35:00* Test Item Value Reference Range Comments D-DIMER (test code = DDIMER) 1488 ng/mlFEU <=500 TH ROMBOSIS AND/OR PULMONARY EMBOLISM AND THE CLINICAL CUT- OFF VALUE FOR EXCLUSION (500 ng/mL FEU) OF THESE CONDITIONSIS VALIDATED BY THE FACTORY PROCESS WORKERS OF THE METHOD. A NEGATIVE D-DIMER RESULT WHEN COMBINED WITH A CLINICALASSESSMENT OF LOW PRETEST PROBABILITY HAS BEEN SHOWN TO HAVEA HIGH NEGATIVE PREDICTIVE VALUE OF DVT OR PE. D-DIMER VALUES >500 ng/mL FEU ARE NOT DIAGNOSTIC FOR DVT, PEor DIC WITHOUT OTHER CONFIRMATORY TESTS AND APPROPRIATECLINICAL EUALUATIONS. BASIC METABOLIC [id number] 08:09:00* Test Item Value Reference Range Comments SODIUM (test code = NA) 145 mEq/L 134-147 POTASSIUM (test code = K) 3.5 mEq/L 3.4-5.0 CHLORIDE (test code = CL) 122 mEq/L 100-108 CARBON DIOXIDE (test code = CO2) 16 mEq/L 21-33 ANION GAP (test code = GAP) 11 0-20 GLUCOSE (test code = GLU) 119 mg/dL 70-110 BLOOD UREA NITROGEN (test code = BUN) 29 mg/dL 7-18 GLOMERULAR FILTRATION RATE (test code = GFR) 40.8 80- 90 Units of measure = ml/min/1.73 m2 CREATININE (test code = CREAT) 1.7 mg/dL 0.6-1.3 CALCIUM (test code = CA) 7.5 mg/dL 8.0-10.5 CBC W/AUTO [id number] 07:44:00* Test Item Value Reference Range Comments WHITE BLOOD CELL (test code = WBC) 9.99 x10 3/uL 4.5-11.0 RED BLOOD CELL (test code = RBC) 3.99 x10 6/uL 4.00-5.60 HEMOGLOBIN (test code = HGB) 12.6 g/dL 12.5-16.9 HEMATOCRIT (test code = HCT) 39.1 % 37.5-50.7 MEAN CELL VOLUME (test code = MCV) 98.0 fL 81.0-99.0 MEAN CELL HGB (test code = MCH) 31.6 pg 27.0-33.0 MEAN CELL HGB CONCETRATION (test code = MCHC) 32.2 g/dL 33 .0-37.0 RED CELL DISTRIBUTION WIDTH CV (test code = RDW) 13.1 % 11.5-14.5 RED CELL DISTRIBUTION WIDTH SD (test code = RDW-SD) 47.2 fL 37.0-54.0 PLATELET COUNT (test code = PLT) 191 x10 3/uL 150-400 MEAN PLATELET VOLUME (test code = MPV) 9.8 fL 7.0-9.0 NEUTROPHIL % (test code = NT%) 90.7 % 56.0-77.0 IMMATURE GRANULOCYTE % (test code = IG%) 0.6 % 0.0-2.0 LYMPHOCYTE % (test code = LY%) 8.3 % 14.0-32.0 MONOCYTE % (test code = MO%) 0.3 % 4.8-9.0 EOSINOPHIL % (test code = EO%) 0.0 % 0.3-3.7 BASOPHIL % (test code = BA%) 0.1 % 0.0-2.0 NUCLEATED RBC % (test code = NRBC%) 0.0 % 0-0 NEUTROPHIL # (test code = NT#) 9.06 x10 3/uL 2.0-7.6 IMMATURE GRANULOCYTE # (test code = IG#) 0.06 x10 3/uL 0.00-0. 03 LYMPHOCYTE # (test code = LY#) 0.83 x10 3/uL 1.0-3.8 MONOCYTE # (test code = MO#) 0.03 x10 3/uL 0.1-0.8 EOSINOPHIL # (test code = EO#) 0.00 x10 3/uL 0.0-0.2 BASOPHIL # (test code = BA#) 0.01 x10 3/uL 0.0-0.2 NUCLEATED RBC # (test code = NRBC#) 0.00 x10 3/uL 0.0-0.1 MANUAL DIFF REQUIRED (test code = MDIFF) NO T4 [id number] 00:36:00* Test Item Value Reference Range Comments T4 FREE (test code = T4F) 1.3 ng/dL 0.77-1.61 THYROID STIMULATING [id number] 00:36:00* Test Item Value Reference Range Comments THYROID STIMULATING HORMONE (test code = TSH) 0.22 0. 42-5.47 Results in gautam- International Units/mL [id number] 20:31:00* Test Item Value Reference Range Comments TROPONIN-I (test code = TROPI) 0.020 ng/mL 0.000-0.045 N egative: <= 0.045 Positive: >= 0.046 Correlation with serial results, other cardiac markers andclinical findings is necessary to determine the clinicalsignificance of this result. Results using different methodologies should not be comparedto one another as quantitative results may vary by method. COMMENTS: 3 troponins total (including troponin done in ED)[id number] 17:09:00* Test Item Value Reference Range Comments TROPONIN-I (test code = TROPI) < 0.015 ng/mL 0.000-0.045 N egative: <= 0.045 Positive: >= 0.046 Correlation with serial results, other cardiac markers andclinical findings is necessary to determine the clinicalsignificance of this result. Results using different methodologies should not be comparedto one another as quantitative results may vary by method. COMMENTS: 3 troponins total (including troponin done in ED)- XR CHEST 1 V 2018-09-01 13:53:00 FAX: Siomara Glez DO [phone] [place]: GE St: REG Name: SKY ADHIKARI [facility] : [birth year] Age/S: 63/M [address] [place] [address] Blvd Unit #: [id number] Loc: [place] [address] Phys: Siomara Zapata DO Acct: [id number] Dis Date: Status: REG ER PHONE #: [phone] Exam Date: 09/01/2018 1344 FAX #: [phone] Reason: SOB EXAMS: CPT CODE: [id number] XR CHEST 1 V 23935 CLINICAL HISTORY: Shortness of jaquan ath. COMPARISON: None. PA film of the chest performe d on September 01, 2018 at 1343 demonstrates that cardiac silhouette is mildly enlarged. Atheromatous calcification is present in the aortic arch. Lung blanco demonstrate no evidence of pneumonia or congestive f ailure. Linear opacities are present at the left lung base compatible wit h discoid atelectasis. A 3 mm calcified granuloma is present in the left midlung field. IMPRESSION: 1. Cardiomegaly without evid ence of congestive failure. 2. Hypoventilatory changes compatible with atelectasis at the left lung base. 3. Calcified granuloma in th e left midlung field. Electronically Signed by Erin Grant on 0 09/01/2018 at 1353 Reported and signed by: Chauncey Loza CC: Siomara Zapata DO Technologist: RT Lucio(R) Trnscrd Date/Time/By: 09/01/2018 (2164) : By: Maryann Orig Print D/T: S: 0 09/01/2018 (3447) PAGE 1 Signed Re port B-TYPE NATRIURETIC [id number] 13:37:00 * Test Item Value Reference Range Comments B-TYPE NATRIURETIC PEPTIDE (test code = BNP) 187.4 PG/ML 0-1 00 BASIC METABOLIC [id number] 13:27:00* Test Item Value Reference Range Comments SODIUM (test code = NA) 144 mEq/L 134-147 POTASSIUM (test code = K) 4.2 mEq/L 3.4-5.0 CHLORIDE (test code = CL) 119 mEq/L 100-108 CARBON DIOXIDE (test code = CO2) 22 mEq/L 21-33 ANION GAP (test code = GAP) 7 0-20 GLUCOSE (test code = GLU) 107 mg/dL 70-110 BLOOD UREA NITROGEN (test code = BUN) 24 mg/dL 7-18 GLOMERULAR FILTRATION RATE (test code = GFR) 35.9 80- 90 Units of measure = ml/min/1.73 m2 CREATININE (test code = CREAT) 1.9 mg/dL 0.6-1.3 CALCIUM (test code = CA) 8.3 mg/dL 8.0-10.5 [id number] 13:27:00* Test Item Value Reference Range Comments MAGNESIUM (test code = MAG) 2.60 mg/dL 1.8-2.4 [id number] 13:27:00* Test Item Value Reference Range Comments TROPONIN-I (test code = TROPI) 0.017 ng/mL 0.000-0.045 N egative: <= 0.045 Positive: >= 0.046 Correlation with serial results, other cardiac markers andclinical findings is necessary to determine the clinicalsignificance of this result. Results using different methodologies should not be comparedto one another as quantitative results may vary by method. PROTHROMBIN [id number] 13:24:00* Test Item Value Reference Range Comments PROTHROMBIN TIME PATIENT (test code = PTP) 12.0 SECONDS 9.3-1 2.9 INTERNATIONAL NORMAL RATIO (test code = INR) 1.1 0.8 -1.2 TARGET INR BY INDICATION Indication INR1. Prophylaxis of venous thrombosis 2.0 - 3.0 (orthopedic surgery), Prophylaxis of venous thrombosis (other than high-risk surgery), Treatment of Deep Vein Thrombosis/Pulmonary Embolism, Prevention of systemic embolism - Tissue heart valves, Acute Myocardial Infarction (to prevent systemic embolism), Valvular heart disease, Atrial Fibrillation, Bileaflet mechanical valve in aortic position.2. Mechanical prosthetic valves (high risk), 2.5 - 3.5 Presence of Lupus Anticoagulant or Antiphospholipid Antibodies, Prevention of systemic embolism - Acute Myocardial Infarction (to prevent recurrent infarct). THROMBOPLASTIN TIME [id number] 13:24:00* Test Item Value Reference Range Comments THROMBOPLASTIN TIME PARTIAL (test code = PTT) 35.8 Seconds 25 .0-39.5 Therapeutic Range: 61.8-83.8 Sec Effective 07/05/2013 CBC W/AUTO [id number] 13:05:00* Test Item Value Reference Range Comments WHITE BLOOD CELL (test code = WBC) 11.45 x10 3/uL 4.5-11.0 RED BLOOD CELL (test code = RBC) 4.56 x10 6/uL 4.00-5.60 HEMOGLOBIN (test code = HGB) 14.3 g/dL 12.5-16.9 HEMATOCRIT (test code = HCT) 44.4 % 37.5-50.7 MEAN CELL VOLUME (test code = MCV) 97.4 fL 81.0-99.0 MEAN CELL HGB (test code = MCH) 31.4 pg 27.0-33.0 MEAN CELL HGB CONCETRATION (test code = MCHC) 32.2 g/dL 33 .0-37.0 RED CELL DISTRIBUTION WIDTH CV (test code = RDW) 12.9 % 11.5-14.5 RED CELL DISTRIBUTION WIDTH SD (test code = RDW-SD) 46.0 fL 37.0-54.0 PLATELET COUNT (test code = PLT) 224 x10 3/uL 150-400 MEAN PLATELET VOLUME (test code = MPV) 9.6 fL 7.0-9.0 NEUTROPHIL % (test code = NT%) 82.7 % 56.0-77.0 IMMATURE GRANULOCYTE % (test code = IG%) 0.6 % 0.0-2.0 LYMPHOCYTE % (test code = LY%) 12.2 % 14.0-32.0 MONOCYTE % (test code = MO%) 3.9 % 4.8-9.0 EOSINOPHIL % (test code = EO%) 0.3 % 0.3-3.7 BASOPHIL % (test code = BA%) 0.3 % 0.0-2.0 NUCLEATED RBC % (test code = NRBC%) 0.0 % 0-0 NEUTROPHIL # (test code = NT#) 9.47 x10 3/uL 2.0-7.6 IMMATURE GRANULOCYTE # (test code = IG#) 0.07 x10 3/uL 0.00-0. 03 LYMPHOCYTE # (test code = LY#) 1.40 x10 3/uL 1.0-3.8 MONOCYTE # (test code = MO#) 0.45 x10 3/uL 0.1-0.8 EOSINOPHIL # (test code = EO#) 0.03 x10 3/uL 0.0-0.2 BASOPHIL # (test code = BA#) 0.03 x10 3/uL 0.0-0.2 NUCLEATED RBC # (test code = NRBC#) 0.00 x10 3/uL 0.0-0.1 MANUAL DIFF REQUIRED (test code = MDIFF) NO
--- NOTE | 2019-10-13 13:10 | NUR ---
1310pt in Rm#8, prepped for procedure. Alert oriented and appropriate, PERRLA, respirations even and unlabored to room air. Pulses x4 extremities equal and palpable.Left DP palpable all others Doppler(Lt PT/Rt FP/PT) Cap fill brisk < 3 sec. Schedule LHC for abnormal stress.Dr York Skin warm and dry integrity appears intact in general. IV #20 LFA,started and presents healthy w/o s/s of infiltration or complaint. Abdomen soft and supple. pt offered toileting, denies need to urinate or defecate. Personal affects with patient. No Family at bedside. Call granddaughter for pickup. Pt to talk to Daughter about results.Pt verbalizes understanding of POC. Pre-Op Meds Benadryl and Xanax given. bed low and locked, side rails up x2 and call light at side. Aware not to get up. Handoff to Ashwin bravo/rn
--- NOTE | 2019-10-13 13:45 | NUR ---
1345p pre-op given Benadryl 50, Xanax 0.5 po pt instructed to call for help. Pt in room #8 bed locks on and on side rails up and bed in low position,ready for procedure and handoff to Ashwin Lopez ds/rn
--- NOTE | 2019-10-13 20:09 | Operative Report ---
DATE OF PROCEDURE: 10/13/2019 SURGEON: Carlos York MD INDICATIONS: Coronary artery disease, abnormal stress test, congestive heart failure. PROCEDURES PERFORMED: 1. Ultrasound-guided access in the right radial artery and sheath placement with permanent image storage. 2. Conscious sedation administration, hemodynamic, neurological monitoring and recovery by chemical laboratory scientist RN, supervision by MD for 35 minutes. 3. Left heart catheterization, selective coronary angiography. 4. Deployment of right wrist TR band. COMPLICATIONS: None. RECOMMENDATION: Cardiac resynchronization device for defibrillator placement. DESCRIPTION OF PROCEDURE: Access obtained in the right radial artery using ultrasound guidance. A 6-Pashto sheath was placed. Coronary angiography demonstrated patent left main left, anterior descending artery proximal 50% to 60% stenosis, remaining vessel as well as circumflex had mild to 10% to 20% stenosis. A large long stent in the mid and proximal right coronary artery with minimal 20% in-stent restenosis. No complications. No critical stenosis or occlusions were noted. LV end-diastolic pressure of 4. No gradient across the aortic valve on pullback. Wire and guide sheath removed, TR band applied. The patient discharged home as listed above. Carlos York MD KSB/MODL /[id number]
== END | disposition home or self-care (01) ==
LOC: CATH LAB 12:01
PROVIDERS: ATTEND Internal Medicine Interventional Cardiology
DX: I25.10 Atherosclerotic heart disease of native coronary artery without angina pectoris (principal); R94.39 Abnormal result of other cardiovascular function study; I50.9 Heart failure, unspecified; I48.21 Permanent atrial fibrillation; I25.2 Old myocardial infarction; I44.7 Left bundle-branch block, unspecified; I27.81 Cor pulmonale (chronic); Z01.812 Encounter for preprocedural laboratory examination; Z01.818 Encounter for other preprocedural examination; Z11.59 Encounter for screening for other viral diseases; Z95.5 Presence of coronary angioplasty implant and graft; Z82.49 Family history of ischemic heart disease and other diseases of the circulatory system
CPT/HCPCS: 36415; 80053; 85025; 87635; 93458; C1769; C1887; J2001; J2250; J3010; J7030; Q9967; 99152; J1644

== ENCOUNTER 2021-06-12 17:02 | Emergency (ER) | payer MEDICARE ==
[~2021-06-12] VITALS: Ht 180.3 cm; Wt 65.8 kg
[~2021-06-12 17:02] MED LIST changes: -ALPRAZOLAM 0.5 MG TAB ONE; -DIPHENHYDRAMINE HCL 25 MG CAP ONE; -FENTANYL CITRATE/PF 100MCG/2 ML INJ ONE; -HEPARIN SOD (PORCINE) 1000 UNIT/ML 30ML ONE; -HEPARIN SOD/SOD CHLORIDE 2,000 ML ONE; -IOPAMIDOL 370 MG/ML 200 ML INFUS..BTL INJ ONE; -LIDOCAINE HCL 2% LOCAL 20 ML VIAL ONE; -MIDAZOLAM HCL 2 MG/2 ML VIAL ONE; -SODIUM CHLORIDE 0.9% 1000ML 1,000 ML ONE; -VERAPAMIL HCL 2.5 MG/ML 2 ML VIAL ONE
== END 2021-06-12 18:10 | disposition home or self-care (01) ==
LOC: ER 17:32
DX: U07.1 COVID-19 (principal); R50.9 Fever, unspecified; R05.9 Cough, unspecified; I10 Essential (primary) hypertension; E78.5 Hyperlipidemia, unspecified; I48.91 Unspecified atrial fibrillation; I50.9 Heart failure, unspecified; J44.9 Chronic obstructive pulmonary disease, unspecified; K21.9 Gastro-esophageal reflux disease without esophagitis
CPT/HCPCS: 99283